=== PATIENT | male | born 1955 | race Two or more races ===

== ENCOUNTER → 2016-07-29 | Outpatient (CLI) | payer OTHER ==
--- NOTE | ~2016-07-29 | CR170 ---
[facility] A Service of [facility] & [facility] RADIOLOGY TEXT RESULTS PATIENT: LIA YO LOCATION: [facility] : 51 UNIT #: [id number] AGE: [address]: KOMAL FORDE APRN SEX: M ORDER DR: [id number] [facility] [address] [place], [place] [address] [id number] O MR#: [id number] Acc #: [id number] NAME: LIA YO : 1955 SEX: M STUDY DATE/TIME: 07/29/2016 16:02 UNIT: [facility] ROOM: STUDY DESCRIPTION: CR Knee 2 Views Rt Attending Physician: Komal Forde A.P.R.N. Referring Physician: Komal Forde A.P.R.N. Ordering Physician: Komal Forde A.P.R.N. Primary Care Physician: Komal Forde A.P.R.N. MEDICAL IMAGING REPORT This report is preliminary unless electronic signature is present EXAM Two-view right knee. HISTORY 61-year-old male anterior knee pain and swelling x1-1/2 months. FINDINGS 2 views of the right knee demonstrates mild degenerative change of the right knee with medial joint space loss, minimal spurring of the tibial spines, and mild osteophytes at the patellofemoral joint. There is a small knee effusion. No fracture or dislocation. Bone mineralization appears normal. IMPRESSION Mild arthropathic changes of the right knee with a small knee effusion. Dictated by... Bryanna Martin M.D. THIS IS AN ELECTRONICALLY VERIFIED REPORT Bryanna Martin M.D. at 07/30/2016 8:42 PM JASKARAN/melany TD: 07/30/2016 09:16 JOB #: [id number] MEDICAL IMAGING REPORT COPY
== END | disposition home or self-care (01) ==
LOC: CRAD 15:21
DX: M25.561 Pain in right knee (principal); M25.461 Effusion, right knee
CPT/HCPCS: 73560